=== PATIENT | male | born 1995 | race Caucasian/White ===

== ENCOUNTER 2018-10-16 12:09 | Emergency (ER) | payer SELFPAY ==
--- NOTE | 2018-10-16 12:39 | RAD ---
XR Chest Pa Lat STANDARD History: Chest pain Comparison: None. Findings: Lungs are clear. No pneumothorax. No effusion. No acute osseous abnormality. Impression: No acute intrathoracic abnormality.
[2018-10-16 12:55] LABS: ALT (SGPT) 33 U/L (8-55); AST (SGOT) 76 U/L (5-34); Albumin 4.2 g/dL (3.5-5.0); Alkaline Phosphatase 70 U/L (Less than 750); Anion Gap 12 mmol/L (10-20); BUN (Urea Nitrogen) 10 mg/dL (8.9-20.6); Bilirubin, Total 0.4 mg/dL (0.2-1.2); Calc. Creatinine Clearance 0 mL/min (70-130); Calcium 9.4 mg/dL (7.8-10.44); Carbon Dioxide 30 mmol/L (22-29); Chloride 102 mmol/L (98-107); Estimated GFR-MDRD Greater than 90; Glucose 99 mg/dL (70-105); Potassium 4.6 mmol/L (3.5-5.1); Protein, Total 7.2 g/dL (6.0-8.3); Sodium 139 mmol/L (136-145)
== END 2018-10-16 13:07 | disposition home or self-care (01) ==
LOC: SCSER 12:09
DX: R07.89 Other chest pain (principal); R11.2 Nausea with vomiting, unspecified; R19.7 Diarrhea, unspecified; F17.210 Nicotine dependence, cigarettes, uncomplicated
CPT/HCPCS: 36415; 71046; 80053; 93005